=== PATIENT | male | born 1980 | race Caucasian/White ===

== ENCOUNTER 2018-07-27 20:07 | Emergency (ER) | payer BC, OTHER ==
[2018-07-27 20:24] VITALS: BP 144/96
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
--- NOTE | 2018-07-27 20:42 | CONSULT ---
Consult Consult: I supervised the care of the physician assistant front office manager and I performed a history and physical on this patient. History: Lifting an item when he felt a pop in the AC area of his left arm. Right-handed. Physical exam: A balled up bicep muscle on the left mid arm and no palpable bicep tendon in the antecubital area. Neurovascular intact. Plan: Refer to ortho for repair.
== END 2018-07-27 20:50 | disposition home or self-care (01) ==
LOC: UCEAST 20:07
DX: S46.212A Strain of muscle, fascia and tendon of other parts of biceps, left arm, initial encounter (principal); V86.59XA Driver of other special all-terrain or other off-road motor vehicle injured in nontraffic accident, initial encounter; Y92.9 Unspecified place or not applicable
CPT/HCPCS: 99202; G0463

== ENCOUNTER 2018-08-01 11:34 | Day surgery (SDC) | payer BC ==
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
[~2018-08-01 11:34] MED LIST: Buffered Lidocaine 1% SYRIN* 1 ML/SYRINGE INTRADERM ONE; Dexamethasone IV* 4 MG/ML 1 ML (4 MG) IV SLOW PU ONE; Dexamethasone IV* 4 MG/ML 1 ML (4 MG) ONE; Famotidine IV* 10 MG/ML 2 ML (20 mg) IV ONE; Famotidine IV* 10 MG/ML 2 ML (20 mg) ONE; Lactated Ringers 1000 ML Bag* 1,000 ML IV SCH; ceFAZolin 2 GM PREMIX in ORs 2 GM/50 ML BAG IVPB ONE
[2018-08-01] MEDS ORDERED: fentaNYL* 50 MCG/ML 2 ML VIAL (100 MCG VIAL) ONE ×2 (12:41→16:36)
[2018-08-01] MEDS ORDERED: Midazolam* 1 MG/ML 5 ML VIAL (5 MG) ONE (12:42)
[2018-08-01] MEDS ORDERED: Propofol* 10 MG/ML 20 ML BTL ONE ×2 (12:42→14:03)
[2018-08-01] MEDS ORDERED: Lidocaine 2% PF * 5 ML VIAL ONE (12:42)
[2018-08-01] MEDS ORDERED: Ondansetron INJ* 2 MG/ML VIAL ONE (13:08)
[2018-08-01] MEDS ORDERED: ceFAZolin 1 GM in Dextrose (*) 1 GM/50 ML BAG IVPB ONE (13:19)
[2018-08-01] MEDS ORDERED: Bupivacaine 0.5% W/EPI SDV* 30 ML VIAL ONE (14:16)
[2018-08-01] MEDS ORDERED: Ketorolac INJ* 30 MG/ML 1 ML VIAL ONE (14:28)
[2018-08-01] MEDS ORDERED: KETAMINE HCL* 50 MG/ML 10 ML VIAL ONE (15:37)
[2018-08-01] MEDS ORDERED: oxyCODONE/Acetamin 5/325 MG* TAB ONE (17:03)
[2018-08-01 17:53] VITALS: BP 121/81
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
== END 2018-08-01 17:45 | disposition home or self-care (01) ==
LOC: OR 11:34
PROVIDERS: ATTEND Orthopaedic Surgery
DX: S46.212A Strain of muscle, fascia and tendon of other parts of biceps, left arm, initial encounter (principal); X50.0XXA Overexertion from strenuous movement or load, initial encounter; Y92.89 Other specified places as the place of occurrence of the external cause
CPT/HCPCS: 76000; 88304; A9270-GY; C1713; J0690; J1100; J1885; J2250; J2405; J2704; J3010

== ENCOUNTER 2021-09-24 19:47 | Observation (INO) ==
[2021-09-24 20:24] LABS: INR 1.09 (0.89-1.11)
[2021-09-24 20:27] LABS: ABS Eosinophils 0.1 10^3/ul (0-0.6); ABS Lymphocytes 2.4 10^3/ul (1.0-4.8); ABS Monocytes 0.9 10^3/ul (0-0.8); ABS Neutrophils 5.5 10^3/ul (1.5-7.7); Eosinophil % 0.7 %; Hematocrit 45 % (42-52); Hemoglobin 14.9 g/dL (14.0-18.0); Lymphocyte % 26.7 %; Mean Corpuscular HGB Conc 33 g/dL (31-36); Mean Corpuscular Hemoglobin 30 pg (27-31); Mean Corpuscular Volume 90 fL (80-94); Mean Platelet Volume 7.8 fL (7.4-10.4); Nucleated Red Blood Cells % 0.1; Platelet Count 211 10^3/uL (150-450); Red Blood Count 4.98 10^6 /uL (4.18-5.48); Red Cell Distribution Width 13 % (10-15); White Blood Count 8.8 10^3/uL (3.5-10.8)
[2021-09-24 20:42] LABS: Albumin 4.1 g/dL (3.2-5.2); Albumin/Globulin Ratio 1.3 (1-3); Calcium 9.3 mg/dL (8.6-10.3); Globulin 3.2 g/dL (2-4); Potassium 3.9 mmol/L (3.5-5.0); Total Bilirubin 0.9 mg/dL (0.2-1.0); Total Protein 7.3 g/dL (6.4-8.9); eGFR CKD-EPI 55.7 (>60)
[2021-09-24 21:53] LABS: High Sensitivity Troponin 1 Hr 24 pg/mL (<20)
[2021-09-25] MEDS ORDERED: NS 0.9% 1000 ml BAG 1,000 ML IV SCH (01:00)
[2021-09-25 06:40] LABS: Albumin 3.7 g/dL (3.2-5.2); Albumin/Globulin Ratio 1.4 (1-3); Calcium 8.5 mg/dL (8.6-10.3); Direct Bilirubin 0.2 mg/dL (0.03-0.18); Globulin 2.6 g/dL (2-4); Indirect Bilirubin 0.8 mg/dL (0.3-1.0); Potassium 4.1 mmol/L (3.5-5.0); Total Protein 6.3 g/dL (6.4-8.9); eGFR CKD-EPI 83.6 (>60)
[2021-09-25 14:46] LABS: Urine Appearance Clear; Urine Color Yellow
[2021-09-25 14:47] LABS: Urine Bilirubin Negative (Negative); Urine Blood Negative (Negative); Urine Glucose Negative (Negative); Urine Ketones Negative (Negative); Urine Nitrite Negative (Negative); Urine Protein Negative (Negative); Urine Urobilinogen 0.2 (Negative) (Negative); Urine pH 7.5 (5.0-9.0)
[2021-09-25 15:19] VITALS: BP 151/98
== END 2021-09-25 18:35 | disposition home or self-care (01) ==
LOC: ED 19:47 → EDHOLD 19:47 → MEDTELE 09-25 10:23
PROVIDERS: ADMIT Internal Medicine; ATTEND Internal Medicine